=== PATIENT | female | born 1980 | race Caucasian/White ===

== ENCOUNTER 2016-09-28 17:41 | Emergency (ER) | payer OTHER ==
[~2016-09-28] VITALS: Ht 158 cm; Wt 68.2 kg
[2016-09-28 17:43] VITALS: BP 131/77; TEMP 97.9
[2016-09-28 18:33] VITALS: PULSE 87
== END 2016-09-28 18:34 | disposition home or self-care (01) ==
LOC: COL.ER 17:41
DX: R51 Headache (principal)

== ENCOUNTER → 2017-09-22 | Outpatient (CLI) | payer SELFPAY ==
[2017-09-22 15:19] LABS: BASO # 0.1 (0.0-0.2); BASO % 0.6 % (0.0-2.0); EOS # 0.1 (0.0-0.7); EOS % 1.4 % (0-4.0); GRAN % 57.1 % (42.2-75.2); HEMATOCRIT 42.1 % (37.0-47.0); HEMOGLOBIN 14.5 g/dl (12.5-16.0); LYMPH # 2.9 (1.2-3.4); LYMPH % 33.1 % (20.0-51.0); MEAN CELL VOLUME 93 fl (80.0-100.0); MEAN CORPUSCULAR HEMOGLOBIN 32 pg (27.0-31.0); MEAN CORPUSCULAR HGB CONC 34 g/dl (33.0-37.0); MEAN PLATELET VOLUME 12.9 fl (7.4-10.4); MONO # 0.7 (0.1-0.6); MONO % 7.6 % (1.7-9.3); PH 7 (5-8); PLATELET COUNT 272 K/mm3 (130-400); RED BLOOD COUNT 4.53 M/mm3 (4.10-5.30); REDCELL DISTRIBUTION WIDTH-CV 12.1 % (11.5-14.5); URINE APPEARANCE Hazy; URINE BACTERIA None Seen /hpf; URINE BILIRUBIN Negative (NEGATIVE); URINE BLOOD Negative (NEGATIVE); URINE COLOR Straw; URINE GLUCOSE Negative (NEGATIVE); URINE KETONE Negative (NEGATIVE); URINE LEUKOCYTE ESTERASE Negative (NEGATIVE); URINE NITRATE Negative (NEGATIVE); URINE PROTEIN(semi-quant) Negative (NEGATIVE); URINE RBC 0-2 /hpf; URINE UROBILINOGEN Negative (NEGATIVE); URINE WBC 0-2 /hpf
[2017-09-22 15:27] LABS: ALBUMIN 4.5 gm/dL (3.5-5.0); BILIRUBIN,TOTAL 0.8 mg/dL (0.0-1.0); CALCIUM 9.8 mg/dL (8.4-10.2); CHOLESTEROL RISK RATIO 4.6; CREATININE, serum 0.6 mg/dL (0.52-1.25); POTASSIUM 4.3 mmol/L (3.4-5.0); TOTAL PROTEIN 8.2 gm/dL (6.4-8.2); URIC ACID 5.2 mg/dL (2.5-6.2)
[2017-09-22 15:55] LABS: COLLECTION METHOD CLEAN CATCH
[2017-09-22 15:56] LABS: TSH w REFLEX 2.22 uIU/mL (0.465-4.680)
== END ==
LOC: ZCOL.LAB 15:03
PROVIDERS: Internal Medicine
DX: R51 Headache (principal)